=== PATIENT | female | born 1990 | race Hispanic/Latino ===

== ENCOUNTER → 2019-04-30 | Outpatient (CLI) | payer OTHER ==
[2019-04-30 17:41] LABS: BASO # 0.1 10^3/uL (0.0-0.2); BASO % 0.5 % (0.0-1.0); EOS # 0.2 10^3/uL (0.0-0.5); EOS % 1.8 % (0.0-3.0); HEMATOCRIT 43.7 % (36.0-47.0); HEMOGLOBIN 14.1 g/dl (12.0-15.5); LYMPH # 2.3 10^3/uL (1.5-5.0); LYMPH % 22.7 % (24.0-44.0); MEAN CORPUSCULAR HEMOGLOBIN 29.3 pg (27.0-33.0); MEAN CORPUSCULAR HGB CONC 32.3 g/dl (32.0-36.5); MEAN CORPUSCULAR VOLUME 90.9 fl (80.0-96.0); MONO # 0.4 10^3/uL (0.0-0.8); MONO % 4.1 % (0.0-5.0); NEUTROPHILS # 7.1 10^3/uL (1.5-8.5); NEUTROPHILS % 70.2 % (36.0-66.0); PLATELET COUNT, AUTOMATED 278 10^3/uL (150-450); RED BLOOD COUNT 4.81 10^6/uL (4.00-5.40); WHITE BLOOD COUNT 10.1 10^3/uL (4.0-10.0)
[2019-04-30 18:04] LABS: GLUCOSE CHALLENGE TEST 1 HOUR 130 MG/DL (LESS THAN 140)
[2019-05-01 10:57] LABS: RUBELLA IgG QUALITATIVE IMMUNE (IMMUNE)
[2019-05-01 11:25] LABS: HEPATITIS C VIRUS ABY INDEX 0.2 INDEX (<0.8)
[2019-05-01 11:26] LABS: HIV 1&2 SCREEN CENTAUR NEGATIVE (NEGATIVE)
== END ==
LOC: M SMT 13:41
PROVIDERS: ATTEND Advanced Practice Midwife
DX: Z34.81 Encounter for supervision of other normal pregnancy, first trimester (principal); Z3A.11 11 weeks gestation of pregnancy

== ENCOUNTER → 2019-05-05 | Outpatient (REF) | payer OTHER ==
[2019-05-05 19:16] LABS: CHLAMYDIA DNA AMPLIFICATION NEGATIVE (NEGATIVE); GC DNA AMPLIFICATION NEGATIVE (NEGATIVE)
== END ==
LOC: M LAB REF 17:20
PROVIDERS: ATTEND Advanced Practice Midwife
DX: Z34.82 Encounter for supervision of other normal pregnancy, second trimester (principal); Z36.0 Encounter for antenatal screening for chromosomal anomalies

== ENCOUNTER → 2019-05-05 | Outpatient (CLI) | payer OTHER | LOC: M SMT 13:17 | PROVIDERS: ATTEND Advanced Practice Midwife | DX: Z36.0 Encounter for antenatal screening for chromosomal anomalies (principal) ==

== ENCOUNTER → 2019-05-14 | Outpatient (CLI) | payer OTHER | LOC: M LAB 06:54 | PROVIDERS: ATTEND Advanced Practice Midwife | DX: Z34.82 Encounter for supervision of other normal pregnancy, second trimester (principal); Z36.89 Encounter for other specified antenatal screening ==

== ENCOUNTER → 2019-06-18 | Outpatient (CLI) | payer OTHER ==
--- NOTE | 2019-06-18 14:43 | REP ---
Clinical: Anatomical evaluation. Comparison: None . Findings: Examination demonstrates a single live intrauterine in cephalic presentation. motion is identified by technologist. Placenta is noted posterior and grade zero without evidence for placenta previa or abruption. Amniotic fluid volume is normal. Cervix measures 4.6 cm in length and appears closed. No evidence for nuchal cord. Gestational age by LMP 21 weeks 2 days with MARQUITA 10/27/2019 . Gestational age by current measurements 21 weeks 1 day with MARQUITA 10/28/2019 . FHR equals 140 beats per minute. BPD 5.0 cm 21 weeks 0 days HC 18.4 cm 20 weeks 5 days AC 15.8 cm 20 weeks 6 days FL 3.9 cm 22 weeks 3 days HL 3.1 cm 20 weeks 3 days HC/AC ratio 1.16 Estimated weight 429 grams ( 53rd percentile). Anatomical assessment demonstrates normal structures including cranium, choroid plexus, cavum, cerebellum/posterior fossa, facial features, lungs, four-chamber heart/ventricular outflow tracts, diaphragm, stomach, cord insertion/three-vessel cord, kidneys/bladder, spine, and extremities. Impression: 1. Single live intrauterine in cephalic presentation demonstrating appropriate interval growth. 2. Anatomical assessment is complete and normal. No gross abnormalities are identified. Electronically Signed by Geraldo Viramontes MD 06/18/2019 02:35 P
== END ==
LOC: M RAD 13:21
PROVIDERS: ATTEND Advanced Practice Midwife
DX: Z34.82 Encounter for supervision of other normal pregnancy, second trimester (principal); Z36.89 Encounter for other specified antenatal screening; Z3A.21 21 weeks gestation of pregnancy

== ENCOUNTER → 2019-08-04 | Outpatient (CLI) | payer OTHER ==
[2019-08-04 07:30] LABS: HEMATOCRIT 38.5 % (36.0-47.0); MEAN CORPUSCULAR HEMOGLOBIN 27.9 pg (27.0-33.0); MEAN CORPUSCULAR HGB CONC 31.2 g/dl (32.0-36.5); MEAN CORPUSCULAR VOLUME 89.5 fl (80.0-96.0); PLATELET COUNT, AUTOMATED 270 10^3/uL (150-450); WHITE BLOOD COUNT 9.9 10^3/uL (4.0-10.0)
== END ==
LOC: M LAB 06:57
PROVIDERS: ATTEND Specialist
DX: Z34.82 Encounter for supervision of other normal pregnancy, second trimester (principal); Z36.89 Encounter for other specified antenatal screening

== ENCOUNTER → 2019-10-02 | Outpatient (REF) | payer OTHER | LOC: M SFHCWAGY 09:51 | PROVIDERS: ATTEND Advanced Practice Midwife | DX: Z34.93 Encounter for supervision of normal pregnancy, unspecified, third trimester (principal); Z36.85 Encounter for antenatal screening for Streptococcus B ==

== ENCOUNTER 2019-10-20 06:20 | Inpatient (IN) | payer OTHER ==
[~2019-10-20] VITALS: Ht 149.9 cm; Wt 105.1 kg
[2019-10-20] MEDS ORDERED: BICITRA 30ML SOLN UDC As Ordered ONE (06:38)
[2019-10-20] MEDS ORDERED: ceFAZolin 2 GM/D5W 50 ML IV BAG (J0690 PER 500MG) As Ordered ONE (06:38)
[2019-10-20] MEDS ORDERED: BICITRA 30ML SOLN UDC PO ONE (06:45)
[2019-10-20] MEDS ORDERED: ceFAZolin SOD 2 GM in IV 1 EA IV ONE (06:45)
[2019-10-20] MEDS ORDERED: OXYC1TAB23 PO (07:06)
[2019-10-20 07:12] LABS: HEMOGLOBIN 11.1 g/dl (12.0-15.5); MEAN CORPUSCULAR HEMOGLOBIN 25.5 pg (27.0-33.0); MEAN CORPUSCULAR HGB CONC 30.8 g/dl (32.0-36.5); MEAN CORPUSCULAR VOLUME 82.8 fl (80.0-96.0); PLATELET COUNT, AUTOMATED 340 10^3/uL (150-450); RED BLOOD COUNT 4.35 10^6/uL (4.00-5.40); WHITE BLOOD COUNT 11.1 10^3/uL (4.0-10.0)
[2019-10-20] MEDS ORDERED: ONDANSETRON 4MG/2ML VIAL (J2405) IV PRN ×2 (08:04→09:15)
[2019-10-20] MEDS ORDERED: diphenhydrAMINE 50MG/ML VIAL (J1200) IV PRN (08:04)
[2019-10-20] MEDS ORDERED: NALBUPHINE HCL 10 MG/ML AMP (J2300) IV PRN (08:04)
[2019-10-20] MEDS ORDERED: METOCLOPRAMIDE INJ 10MG/2ML VIAL (J2765) IV PRN ×2 (08:04→09:15)
[2019-10-20] MEDS ORDERED: NALOXONE INJ 0.4 MG/1 ML VIAL (J2310) IV PRN ×2 (08:04)
[2019-10-20] MEDS ORDERED: MORPHINE PRES-FREE INJ 10 MG/10 ML VIAL (J2274) As Ordered ONE (08:06)
[2019-10-20] MEDS ORDERED: OXYTOCIN INJ 10 UNITS/ML VIAL (J2590) As Ordered ONE (08:06)
[2019-10-20] MEDS ORDERED: PHENYLephrine HCL 500 MCG/5 ML (100MCG/ML) SYRINGE (J2370) As Ordered ONE ×2 (08:23→08:33)
[2019-10-20] MEDS ORDERED: OXYTOCIN 30 UNITS IN 0.9% NaCl 500ML IV BAG (J2590) As Ordered ONE ×2 (08:58→09:00)
[2019-10-20] MEDS ORDERED: OXYTOCIN DRIP 30 UNITS in IV 1 EA IV SCH (09:00)
[2019-10-20] MEDS ORDERED: MEASLES,MUMPS,RUBELLA VACCINE INJ (MMR-II) (90707) SC SCH (09:00)
[2019-10-20] MEDS: PRENATAL VITAMINS CHEWABLE TABLET PO SCH (09:00)
[2019-10-20] MEDS ORDERED: ONDANSETRON 4 MG TAB (S0181) PO PRN (09:00)
[2019-10-20] MEDS: LR 1,000 ML IV SCH ×2 (09:00→15:55)
[2019-10-20] MEDS ORDERED: PERCOCET 5MG/325MG TAB PO PRN ×3 (09:00→09:15)
[2019-10-20] MEDS ORDERED: DOCUSATE SODIUM 100 MG CAP PO PRN (09:00)
[2019-10-20] MEDS ORDERED: RHOGAM 300 MCG (1500 IU) INJ (J2790) IM SCH (09:00)
[2019-10-20] MEDS ORDERED: PRENATAL VITAMINS CHEWABLE TABLET PO SCH (09:00)
[2019-10-20] MEDS ORDERED: LR 1,000 ML IV SCH (09:15)
[2019-10-20] MEDS ORDERED: fentaNYL 100 MCG/2 ML INJECTION (J3010) IV PRN (09:15)
--- NOTE | 2019-10-20 09:26 | RO ---
DATE OF PROCEDURE: 10/20/2019 PREPROCEDURE DIAGNOSIS: 39 weeks, prior section times two. POSTPROCEDURE DIAGNOSIS: 39 weeks, prior section times two. PROCEDURE: Repeat low transverse section. SURGEON: Dr. Earl Motta. DAM TENDER: Dr. Tatiana Turner. SECOND DAM TENDER: Karl Barney ANESTHESIA: Spinal. ESTIMATED BLOOD LOSS: 500 mL. URINE OUTPUT: 25 mL. FINDINGS: 1-etbdc-16-ounce female infant 4020 grams, Apgars 9 and 9. Normal uterus, fallopian tubes and ovaries. DESCRIPTION OF PROCEDURE: Patient taken to the operating room where spinal anesthesia was induced. She was prepped and draped in a sterile fashion in supine position. A Bass catheter was placed. Pfannenstiel skin incision was made with a scalpel, carried through to the fascia. The fascia was nicked and extended. The fascia was dissected off the rectus muscle. The peritoneal cavity ws entered. Bladder flap was created. Curvilinear incision made in the lower uterine segment till clear fluid was noted. This was extended manually. was delivered in the vertex position without difficulty. The cord was doubly clamped and cut. The infant was handed off to the awaiting nurses. The placenta was expressed. The uterus was closed with 0 Vicryl in an running locked fashion. A second imbricating layer of 0 Vicryl was placed. The peritoneum was closed with #2-0 Vicryl. The fascia was closed with 0 Vicryl in an running fashion. The deep layer was irrigated and closed to #2-0 chromic. Skin incision was closed with #4-0 Monocryl subcuticular sutures. Sponge, instrument and needle counts were correct. Tatiana Turner MD assisted throughout the procedure from beginning to end. He assisted in creating all layers of the incision. He assisted with delivery of the fetus closure of all subsequent layers.
[2019-10-20] MEDS ORDERED: MEPERIDINE INJ 25 MG/ML VIAL (J2175) IV PRN (09:30)
[2019-10-20] MEDS ORDERED: KETOROLAC 30 MG/ML VIAL (J1885) As Ordered ONE (09:31)
[2019-10-20] MEDS: KETOROLAC 30 MG/ML VIAL (J1885) IV SCH ×3 (09:35→21:57)
[2019-10-20] MEDS ORDERED: fentaNYL 100 MCG/2 ML INJECTION (J3010) As Ordered ONE (09:53)
[2019-10-20 11:00] VITALS: BP 118/56
[2019-10-20 11:30] VITALS: BP 119/68
[2019-10-20 12:30] VITALS: BP 120/60
[2019-10-20] MEDS ORDERED: LR 500 ML IV ONE ×2 (12:45→15:00)
[2019-10-20 13:30] VITALS: BP 123/59
[2019-10-20 18:00] VITALS: BP 122/60
[2019-10-20 22:00] VITALS: BP 116/66
[2019-10-21 02:00] VITALS: BP 128/72
[2019-10-21] MEDS: KETOROLAC 30 MG/ML VIAL (J1885) IV SCH (03:20)
[2019-10-21 06:00] VITALS: BP 120/69
[2019-10-21 06:28] LABS: HEMATOCRIT 30.6 % (36.0-47.0); HEMOGLOBIN 9.3 g/dl (12.0-15.5); MEAN CORPUSCULAR HEMOGLOBIN 25.7 pg (27.0-33.0); MEAN CORPUSCULAR HGB CONC 30.4 g/dl (32.0-36.5); MEAN CORPUSCULAR VOLUME 84.5 fl (80.0-96.0); RED BLOOD COUNT 3.62 10^6/uL (4.00-5.40)
[2019-10-21 06:31] LABS: PLATELET COUNT, AUTOMATED 199 10^3/uL (150-450)
[2019-10-21] MEDS: PRENATAL VITAMINS CHEWABLE TABLET PO SCH (09:35)
[2019-10-21 10:00] VITALS: BP 128/69
[2019-10-21] MEDS: IBUPROFEN 800 MG TAB PO SCH ×2 (11:35→19:23)
[2019-10-21 14:00] VITALS: BP 130/68
[2019-10-21 18:00] VITALS: BP 131/78
[2019-10-21 21:49] VITALS: BP 124/75
[2019-10-22 02:07] VITALS: BP 121/69
[2019-10-22] MEDS: IBUPROFEN 800 MG TAB PO SCH (05:11)
[2019-10-22 05:15] VITALS: BP 124/77
--- NOTE | 2019-10-22 07:58 | DSES ---
DATE OF ADMISSION: 10/20/2019 DATE OF DISCHARGE: 10/22/2019 DISCHARGE DIAGNOSIS: Repeat section, postoperative day #2, stable condition. SURGEON: Dr. Earl Motta. RADIO INTERFERENCE TROUBLE SHOOTER: Dr. Tatiana Turner SECOND ASSIST: Dr. John Barajas HISTORY: Nita underwent a repeat section at 39 weeks gestation, the surgery was uncomplicated. Estimated blood loss was 500 mL. She delivered an 8 pound 14 ounce female, 4020 grams, 9 and 9. Her postoperative course has been uncomplicated. She has been out of bed for self care, nanci care and infant care. She is tolerating by mouth fluids and regular diet. She is passing flatus and voiding without difficulty. Her pain has been well managed with by mouth pain medications. She is bottle feeding. OBJECTIVE: Temperature 97.4, pulse 78, respirations 15, blood pressure (BP) 124/77. Preoperative CBC done with a hemoglobin of 11.1, hematocrit 36.0 and platelets 340. Postoperative CBC with hemoglobin 9.3, hematocrit 30.6 and platelets 194. Breasts are soft, nontender. Nipples are intact. Fundus firm at umbilicus (U). Her incision with dressing intact. There is old drainage. No new drainage. Her perineum is intact, lochia rubra scant. +1 pitting edema bilateral lower extremities. PLAN: Discharge the patient home today. Dr. Motta has already sent E-prescriptions to her pharmacy. I did review discharge instructions that include breast care, incision care, nanci care, pelvic rest, activity and lifting restrictions, access to care and danger signs which to report to her provider. She is to follow up at [facility] for a 2-week incision check and an 8-week visit. All of her questions have been answered. edited: 10/23/2019 0716 [id number]
[2019-10-22] MEDS: PRENATAL VITAMINS CHEWABLE TABLET PO SCH (09:00)
== END 2019-10-22 11:00 | disposition home or self-care (01) | DRG 773 ==
LOC: M LDI 06:20 → M OBS 11:07
PROVIDERS: ADMIT Specialist; ATTEND Specialist
PROC: 10D00Z1 Extraction of Products of Conception, Low, Open Approach (ICD-10-PCS; principal; 2019-10-20 07:30)
DX: O34.211 Maternal care for low transverse scar from previous cesarean delivery (principal); Z37.0 Single live birth; Z3A.39 39 weeks gestation of pregnancy